=== PATIENT | male | born 1945 | race Asian ===

== ENCOUNTER 2025-04-22 15:39 | Emergency (ER) | payer OTHER, SELFPAY ==
[2025-04-22 15:41] VITALS: BP 134/63
[2025-04-22 15:45] VITALS: BP 133/57
[2025-04-22 15:58] LABS: Glucose - Point of Care 179 mg/dl (70-99)
[2025-04-22 16:00] VITALS: BP 121/55
[2025-04-22 16:04] LABS: Hematocrit 37.8 % (39.0-52.0); Hemoglobin 12.5 g/dL (13.0-18.0); Mean Corp Hgb Conc. 33.1 g/dL (33.0-37.0); Mean Corpuscular Volume 84.9 fL (80.0-94.0); Nucleated Red Blood Cells % 0 % (-); Platelet Count 180 10^3/uL (130-400); Red Cell Dist. Width 14.7 % (11.5-14.5)
[2025-04-22 16:20] LABS: ALT (SGPT) 11 U/L (0-50); AST (SGOT) 27 U/L (17-59); Albumin 3.8 g/dl (3.5-5.0); Alkaline Phosphatase 37 U/L (38-126); Blood Urea Nitrogen 23 mg/dl (9-20); Calcium 9.1 mg/dl (8.4-10.2); Carbon Dioxide 25 mmol/L (22-30); Chloride 106 mmol/L (98-107); Glucose 183 mg/dl (70-99); Potassium 4.2 mmol/L (3.5-5.1); Sodium 134 mmol/L (135-145); Total Protein 6.5 g/dl (6.3-8.2); eGFR 56.58
--- NOTE | 2025-04-22 16:24 | ED.GENMED ---
History of Present Illness
General
Chief Complaint: Blood Sugar Problem
Source: patient
Exam Limitations: none
Time Seen by Provider: 04/22/25 15:48
Nursing documentation reviewed up to this point in time: agreed with
History of Present Illness
History of Present Illness:
Patient is a 79-year-old male with history of hypertension hyperlipidemia chronic renal failure insulin-dependent diabetes Presents to the ER for evaluation. Son reports patient told him that he felt that his sugar was going low and it was
around the 70s at that time. Son reports Pt sat down and 'seemed to go out for a second.' His sugar on his Dexcom was in the 60s .
son reports they gave him sugar water and he instantly started feeling better. He also gave him Ang's peanut by cup candy which improved his symptoms are more. He does report however the patient typically feels much better after the incident
and today it was taking slightly longer to recover which is why he was brought to the ED
son at bedside reports patient is a insulin-dependent diabetic and takes 25 units of 70/30 in the morning and at night. He did take his insulin this morning and ate breakfast and lunch as he normally does. It is unclear why his sugar went low
however son does report he had about 60 mL of vodka today. Pt typically will drink about once a month.
Patient denied any chest pain or shortness of breath prior to the episode. Patient has no cardiac history.
Phy Exam
General Physical Exam
General Presentation: no apparent distress
General age: appears stated age
General Skin: warm and dry
General Habitus: normal
General Mental: alert
General Hydration: dry mucous membranes
Cardiovascular Exam
Cardiovascular Exam: regular rate/rhythm, no murmur and normal peripheral pulses
Pulmonary Exam
Pulmonary Exam: lungs clear and no respiratory distress
Neurological Exam
Neurological Exam: alert and oriented x3
Musculoskeletal Exam
Musculoskeletal Exam: full ROM
Skin Exam
Skin Exam: normal color and warm/dry
Psychiatric Exam
Psychiatric Exam: normal mood/affect
Course
Orders/Labs/Results
Orders:
Orders
04/22/25 15:41
EKG [Electrocardiogram (*1)] Urgent
Reason for Study: Syncope
04/22/25 15:42
EKG- Treatment ONCE
04/22/25 15:48
Complete Blood Count/With Diff Urgent
Comprehensive Metabolic Panel Urgent
Troponin I Urgent
04/22/25 16:38
0.9% Sodium Chloride 500 ml [Nss] 500 ml IV BOLUS
Abnormal Lab Results
04/22/25 04/22/25 04/22/25
15:48 15:56 17:49
RBC 4.45 L 10^6/uL
(4.70-6.10)
Hgb 12.5 L g/dL
(13.0-18.0)
Hct 37.8 L %
(39.0-52.0)
RDW 14.7 H %
(11.5-14.5)
Sodium 134 L mmol/L
(135-145)
BUN 23 H mg/dl
(9-20)
Glucose 183 H mg/dl
(70-99)
Alkaline Phosphatase 37 L U/L
(38-126)
POC Glucose 179 H mg/dl 239 H mg/dl
(70-99) (70-99)
04/22/25 15:48
04/22/25 15:48
Vital Signs
Initial and Last Documented VS:
Initial Vital Signs
Temp Resp BP
97.7 F 16 134/63
04/22/25 15:41 04/22/25 15:41 04/22/25 15:41
Last Documented Vital Signs
Temp Pulse Resp BP Pulse Ox
97.7 F 56 18 124/51 98
04/22/25 15:41 04/22/25 17:00 04/22/25 17:00 04/22/25 17:00 04/22/25 17:20
MDM/Problems Addressed
Differential Diagnosis Includes:
Not limited to syncope, dehydration, hypoglycemia
MDM/Problems Addressed:
Symptoms are consistent with an episode of hypoglycemia. Son reports patient felt that he was hypoglycemic felt typical symptoms occurring and notified the son son reports his sugar was in the 60s when he had an episode not responding to him
however patient instantly improved with sugar water and a candy. He presented awake alert no acute distress initial EMS gave him aspirin however he never had any complaints of chest pain or shortness of breath. He has no cardiac history. He has
an unremarkable EKG here in the ER. He was given fluids he is mildly dehydrated. his blood sugars but watch and monitor here. He continues to feel very well requesting to go home stable for discharge home. Discussed with send close monitoring
of sugars and close outpatient follow-up family doctor for reevaluation.
*Pulse Oximetry
SaO2: 98
Oxygen Mode of Delivery: Room air
Patient hypoxic: no
*Critical Care Note
Total Time (30-74mins, 75-104mins- exclusive of procedures): Not Applicable
ED Attending Note
-
Portions of this chart may have been created with voice recognition software.� Occasional wrong word or��sound alike� substitutions may have occurred due to the inherent limitations of voice recognition software.
Discharge Plan
Departure
Patient Disposition: Home (Routine Discharge)
Date of Disposition: 04/22/25
Time of Disposition: 18:51
Patient with high blood pressure during this ER visit?: No
Condition: Fair
Covid-19: Not Applicable
Discharge Problem:
Hypoglycemia
Instructions: Low blood sugar in adults - ED (DC)
Referrals:
Alessio Ho MD [Family Provider, Family Practice]
Activity Restrictions/Additional Instructions:
As discussed, continue to closely monitor your sugars. Return to the ER for any worsening of symptoms. Please follow-up with family doctor the next 2 days return if any worsening of symptoms. Also please increase fluids as you were mildly
dehydrated here.
Interventions
Interventions:
*Risk Screen - Suicide Last Done: 04/22/25 15:53
*General Assessment Last Done: 04/22/25 17:22
*Neglect/Abuse Screening Last Done: 04/22/25 15:53
*ED- Fall Risk Assessment Last Done: 04/22/25 15:53
*ED COVID-19 Vaccine History Last Done: 04/22/25 15:53
*ED Influenza Vaccine History Last Done: 04/22/25 15:53
ED- Neurological Assessment Last Done: 04/22/25 17:21
Discharge Date and Time
Print Language: [id number]
[2025-04-22 16:29] LABS: Troponin I 0.016 ng/ml
[2025-04-22 17:00] VITALS: BP 124/51
[2025-04-22] MEDS: NSS 500 IV (17:00)
[2025-04-22 17:51] LABS: Glucose - Point of Care 239 mg/dl (70-99)
[2025-04-22 19:00] VITALS: BP 130/66
== END 2025-04-22 19:20 | disposition home or self-care (01) ==
LOC: EMR 15:39
PROVIDERS: Nurse Practitioner; EMERGENCY PHYSICIAN Student in an Organized Health Care Education/Training Program; FAMILY PHYSICIAN Family Medicine
DX: E11.649 Type 2 diabetes mellitus with hypoglycemia without coma (principal); E86.0 Dehydration; E11.22 Type 2 diabetes mellitus with diabetic chronic kidney disease; I12.9 Hypertensive chronic kidney disease with stage 1 through stage 4 chronic kidney disease, or unspecified chronic kidney disease; N18.9 Chronic kidney disease, unspecified; Z79.4 Long term (current) use of insulin
CPT/HCPCS: 96360; 99284; 80053; 82962; 84484; 85025; 93005